=== PATIENT | female | born 1965 | race American Indian/Alaskan Native ===

== ENCOUNTER 2022-06-19 09:09 | Outpatient (CLI) | payer OTHER, SELFPAY ==
--- NOTE | 2022-06-19 08:45 | DI.RAD_ITS ---
Exam(s) XR SHOULDER LT COMPLETE 2+V EXAM: XR SHOULDER LT COMPLETE 2+V CLINICAL HISTORY: eval L AC joint pain/swelling. TECHNIQUE: 2D digital imaging was performed. Three views. COMPARISON: MR MRI - L UPPER JOINT WO CONT from 04/26/2016 FINDINGS: BONES: No acute fracture is present. No bony destructive lesion is seen. JOINTS: No dislocation present. Mild spurring AC joint and glenohumeral joint SOFT TISSUE: Calcification adjacent to greater tuberosity consistent with calcific tendinosis. IMPRESSION: Mild degenerative changes and calcific tendinosis. DATA REPOSITORY: RADIATION DOSE DELIVERED:
== END 2022-06-19 09:10 | disposition home or self-care (01) ==
LOC: DIORS 09:10
PROVIDERS: PCP Family Medicine; Referring Provider Family Medicine; Visit Provider Student in an Organized Health Care Education/Training Program
DX: M75.32 Calcific tendinitis of left shoulder (principal); M19.012 Primary osteoarthritis, left shoulder
CPT/HCPCS: 73030

== ENCOUNTER → 2023-05-30 01:58 | Outpatient (CLI) | payer OTHER, SELFPAY ==
--- NOTE | 2023-05-30 07:30 | DI.MRI_ITS ---
Exam(s) MR UPPER JOINT LT WO EXAM: MR UPPER JOINT LT WO CLINICAL HISTORY: PAIN,CALCIFIC TENDINITIS LT SHOULDER, M75.32. TECHNIQUE: Multiplanar multisequence MRI was performed. COMPARISON: Plain films June 20. MRI 26 April 2016 FINDINGS: BONES: There is no fracture or contusion pattern. And small degenerative subchondral cysts in humer al head. JOINTS:The acromioclavicular joint shows mild spurring and fluid. The glenohumeral joint shows no si gnificant fluid. TENDONS: Supraspinatus: Small calcification faintly visible at greater tuberosity corresponding to plain film calcification. Tendon mildly thickened distally. Small amount of increased signal. No discrete tea r. Infraspinatus: Unremarkable. Subscapularis: Unremarkable. Teres Minor: Unremarkable. Biceps and [place]: Biceps tendon not seen, consistent with tear and retraction. MUSCLES: Unremarkable. GLENOID LABRUM: Unremarkable on this noncontrast examination. SOFT TISSUES: Unremarkable. OTHER: Subacromial and subdeltoid bursae shows not no fluid.. Small amount of fluid in subcoracoid bursa. IMPRESSION: Full-thickness tear and retraction of the biceps tendon. Supraspinatus calcific tendinosis. DATA REPOSITORY:
== END ==
PROVIDERS: PCP Family Medicine; Visit Provider Student in an Organized Health Care Education/Training Program
DX: M75.32 Calcific tendinitis of left shoulder (principal); S46.212A Strain of muscle, fascia and tendon of other parts of biceps, left arm, initial encounter; X58.XXXA Exposure to other specified factors, initial encounter
CPT/HCPCS: 73221

== ENCOUNTER 2024-05-07 11:08 | Day surgery (SDC) | payer OTHER, SELFPAY ==
[2024-05-07] VITALS (22 sets, daily range): BP systolic 103–158; BP diastolic 56–96; PULSE 66–84; RESP 15–21; TEMP 36–36.6; O2SAT 94–99; BMI 26.4
--- NOTE | 2024-05-07 10:33 | W.ANESPRE ---
General Info Date of Service Date Performed: 05/07/24 Height: 5 ft 2.5 in Weight: 66.678 kg Body Mass Index (BMI): 26.4 Surgical Procedure: Operation Date: 05/07/24 14:10 Proposed Procedure Side Surgeon p Shoulder Arthroscopy & Debridement Left Omega Sepulveda MD Meds Allergies and Home Medications Allergies Allergy/AdvReac Type Severity Reaction Status Date / Time aspirin Allergy Severe Anaphylaxsi Verified 05/07/24 11:19 s erythromycin base Allergy Severe Pulmonary Verified 05/07/24 11:19 edema NSAIDS (Non-Steroidal Allergy Severe pulmonary Verified 05/07/24 11:19 Anti-Inflamma edema venom-honey bee Allergy Severe Anaphylaxsi Verified 05/07/24 11:19 s CITRIC ACID Allergy Anaphylaxis Uncoded 05/07/24 11:19 Home Medication ?Medication ?Instructions ?Recorded albuterol sulfate 90 mcg/actuation 2 puff inhalation PRN PRN 12/14/12 aerosol inhaler (ProAir HFA) epinephrine 0.3 mg/0.3 mL 0.3 mg IJ PRN PRN 02/11/17 injection, auto-injector (EpiPen 2-David) oxycodone 5 mg tablet 5 mg PO Q4H PRN PRN Pain #20 tabs 10/30/17 lisinopril 10 mg tablet 20 mg PO .QHS 09/05/21 atorvastatin 20 mg tablet 10 mg PO DAILY 03/22/23 alprazolam 0.5 mg tablet 0.5 mg PO ONCE PRN claustrophobia 05/08/23 #2 tabs semaglutide 0.25 mg or 0.5 mg (2 0.25 mg subcut QWEEK 06/04/23 mg/3 mL) subcutaneous pen injector (Ozempic) Current Visit Medications: Current Medications Generic Name Dose Route Start Last Admin Trade Name Freq PRN Reason Stop Dose Admin Acetaminophen 1,000 mg 05/07/24 06:00 Acetaminophen 500 Mg Tab PO 05/07/24 23:59 PREOP BONI Ringer's Solution 1,000 mls @ 80 mls/hr 05/07/24 06:00 IV 05/07/24 23:59 INFUSION BONI Cefazolin Sodium/Dextrose 2 gm in 50 mls @ 100 mls/hr 05/07/24 06:00 Ancef Duplex IVPB 05/07/24 23:59 PREOP BONI Tranexamic Acid/Sodium Chloride 1,000 mg in 100 mls @ 600 mls/hr 05/07/24 06:00 IVPB 05/07/24 23:59 PREOP BONI IV Miscellaneous Supplies 1 each 05/07/24 06:00 Iv Access IV 05/07/24 23:59 DIRECTED BONI Sodium Chloride 0 ml 05/07/24 06:00 Normal Saline Flush 10 Ml Syr IV 05/07/24 23:59 PRN PRN Sodium Chloride 0 ml 05/07/24 06:00 Normal Saline 10 Ml Vial IJ 05/07/24 23:59 DIRECTED PRN Sterile Water 0 ml 05/07/24 06:00 Water,Injection,Sterile 10 Ml Vial IJ 05/07/24 23:59 DIRECTED PRN PFSH Active Problems Active Problems: Problem Status Onset Code Status post arthroscopy of left shoulder Acute Z98.890 Calcific tendinitis of left shoulder Acute M75.32 Arthralgia of left acromioclavicular joint Acute M25.512 Contracture of iliopsoas muscle Acute M62.459 Stiffness of left shoulder joint Acute M25.612 Incomplete tear of left rotator cuff Acute 05/08/16 M75.112 Medical History Medical History Chondromalacia, 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) Chronic left shoulder pain (04/25/17) Derangement of medial meniscus of left knee (05/08/16) Left hip pain (11/01/16) Subacromial impingement of left shoulder (06/11/17) Superior glenoid labrum lesion of left shoulder, subsequent encounter (11/12/17) Tendinitis of left rotator cuff (06/11/17) Surgical History Surgical History Hx of hysterectomy Ligation of fallopian tube Cholecystectomy Tobacco Smoking/Tobacco Use Status: Former Tobacco Use Alcohol Alcohol Intake: current Alcohol intake frequency: a few times a month Substance Use Substance use: Never Substance use type: does not use Vital Signs and Lab Results Vital Signs Most Recent Vital Signs in EMR: Temp Pulse Resp BP Pulse Ox 36 C L 76 16 128/74 97 05/07/24 11:13 05/07/24 11:13 05/07/24 11:13 05/07/24 11:13 05/07/24 11:13 Lab Results Blood Type / Crossmatch: No Data to Display Complete Blood Count: No Data to Display Complete Metabolic Panel: No Data to Display Liver Function Panel: No Data to Display Coagulation Panel: No Data to Display Cardiac Panel: No Data to Display Arterial Blood Gas: No Data to Display Venous Blood Gas: No Data to Display Pancreas Panel: No Data to Display Thyroid Panel: No Data to Display Infectious Disease: No Data to Display Blood Cultures: No Data to Display Toxicology Panel: No Data to Display Anesthesia Assessment and Plan Anesthesia History Personal History: No History of Anesthesia Complications Family History: No Family History of Anesthesia Complications Exercise Tolerance Exercise Tolerance: Metabolic Equivalents>4 Pertinent Negatives Pertinent Negatives: No Symptoms of GERD, No Major Cardiovascular Symptoms or Complaints, No History of CVA/TIA and Other (Daily use of albuterol inhaler, more frequently dependent on irritants ) Cardiac & Pulmonary Exam Cardiac Exam: Heart Murmur Present Pulmonary Exam: Clear Bilateral Breath Sounds Implantable Cardiac Device Does patient have a Pacemaker or an ICD?: No Airway Exam Known Difficult Airway: No Mallampati Class: 2 Mouth Opening: Normal (> 3cm) Thyromental Distance: Greater than 3 cm Neck Range of Motion: Full ROM Neck Circumference: Normal Teeth Condition: Normal Dentition ASA Classification ASA Score: ASA 2 Emergency Case?: No NPO Status NPO Status: NPO Clears >2 hours, Solids >8 hours Anesthesia Plan Resuscitation Status: Full Code Anesthesia Technique: General Anesthesia Airway Planned: Endotracheal Tube Monitors Used: Standard Monitors Preoperative Comments:: 58 yo female for shoulder scope. Sig PMHx: elevated A1c (semaglutide), Daily use of rescue inhaler Previous Anes: - shoulder scope, mac 3 grade 2. scop patch. midaz for block. 20 mL 0.5% for ISB. - knee scope, LMA 4, no issues. Plan GETA, Brachial plexus block, TIVA, sedline, adequate IV access, phenylephrine infusion
[2024-05-07] MEDS: Acetaminophen 500 MG TAB 1000 MG PO (11:30)
[2024-05-07] MEDS: Lactated Ringers 1,000 ML 80 ML IV (11:42)
--- NOTE | 2024-05-07 14:18 | W.PM.DSUDISC ---
Date of service: 05/07/24 Time of Service: 14:18 Discharge Plan Disposition Patient Disposition: Home Condition: Good Discharge Details Reason For Visit: L shoulder arthroscopy Attending Provider: Omega Sepulveda Primary Care Provider: Lynda Salamanca Home Meds and New Rx's Prescriptions: New acetaminophen 500 mg tablet 1,000 mg PO TID Qty: 90 3RF oxycodone 5 mg tablet 5 mg PO Q4H MDD 6 tabs PRN (Reason: pain) Qty: 20 0RF Continued atorvastatin 20 mg tablet 10 mg PO DAILY Ozempic 0.25 mg or 0.5 mg (2 mg/3 mL) pen injector 0.25 mg subcut QWEEK Rx Instructions: for 4 weeks alprazolam 0.5 mg tablet 0.5 mg PO ONCE PRN (Reason: claustrophobia) Qty: 2 0RF Rx Instructions: Take within 3o minutes of MRI. Repeat x 1 if necessary. albuterol sulfate [ProAir HFA] 1 PUFF HFA aerosol inhaler 2 puff Inhalation PRN PRN lisinopril 10 mg tablet 20 mg PO .QHS Patient Comments: 08/01/17-PT STATES CURRENT DOSE IS 15MG DAILY--RODRIGO MATHIAS epinephrine [EpiPen 2-David] 0.3 MG/0.3 ML auto-injector 0.3 mg IJ PRN PRN Discontinued oxycodone 5 MG tablet 5 mg PO Q4H PRN PRN (Reason: Pain) Qty: 20 0RF Discharge Instructions Stand Alone Forms: Derick Shoulder Arthro Referrals: Omega Sepulveda MD [ [facility] ST[facility]FF PHYSICIAN] - Equipment/Supplies: Sling Activity:: Elevate Remove Dressings/Wound Care:: 72 hours Shower/Bathe:: 72 hours Diet:: As Tolerated Discharge Orders Discharge Orders: Discharge Order (Routine); Ordered 05/07/24 Ordered By: Addison Bautista DS: Diagnosis Discharge Diagnosis (1) Calcific tendinitis of left shoulder: Status: Acute
--- NOTE | 2024-05-07 14:29 | W.ANESNERVE ---
Nerve Block Single Injection Procedure Date and Time Date Performed: 05/07/24 Procedure Start: 13:47 Location Where Procedure Performed Procedure Location: Day Surgery Unit Reason Performed: Postoperative Analgesia Requesting Provider: Omega Sepulveda Timeout Performed Timeout Performed: No Monitoring Used ECG, Blood Pressure, SpO2 and See EMR for corresponding vital signs Sterility Sterility: Hand Hygiene, Surgical Cap, Surgical Mask, Sterile Gloves and Chlorhexidine Sedation Given During Procedure Sedation Given (Indicate Dose Given): Versed IV Dose:: 2mg Patient Mental Status Patient Mental Status: Sedate with meaningful communication Nerve Block 1st Nerve Block: Laterality: Left Block Type: Interscalene Ultrasound Image Saved?: Yes Needle / Catheter Used: 100mm SonoPlex II Local Anesthetic Bolus (Indicate Dose Given): Lidocaine used for local infiltration of skin, Injected in 3-5ml increments after negative blood aspiration, Bupivacaine 0.5% Dose:: 10ml and Exparel Dose:: 10ml Additives (Indicate Dose Given): None Ultrasound: Sterile probe cover and gel used Nerve Stimulator: Supplement to Ultrasound use and No twitch or parasthesia noted < 0.5 mA Paresthesia: None Procedure Tolerated: No Complications and Patient tolerated well Procedure Outcome: Successful Performed By: Misael Monroy Supervised By: Stuart Bell
[2024-05-07] MEDS: ceFAZolin 2 GM/50 ML BAG IVPB (14:48)
[2024-05-07] MEDS: TRANEXAMIC ACID/SOD. CHL. 1,000 MG/100 ML BAG 600 MG IVPB (14:53)
[2024-05-07] MEDS: EPINEPHrine 10 MG/10 ML ML (15:23)
--- NOTE | 2024-05-07 16:21 | W.ANESPOSTOP ---
Postoperative Evaluation Date, Time and Location Date Performed: 05/07/24 Time Performed: 16:22 Patient Location: PACU Vital Signs Most Recent Imported Vital Signs: Most Recent Vital Signs Temp Pulse Resp BP Pulse Ox 36.5 C 67 17 128/83 95 05/07/24 16:16 05/07/24 16:16 05/07/24 16:16 05/07/24 16:16 05/07/24 16:16 Pain Score Most Recent Pain Score: Most Recent Pain Score Pain Level 0 05/07/24 16:15 Assessment Mental Status: Awake (Alert & Oriented to Patient Baseline) Airway and Respiratory Function: Patent airway with normal (patient baseline) respiratory exam Cardiovascular Function: Hemodynamically Stable Hydration Status: Adequately Hydrated Nausea & Vomiting: No Nausea or Vomiting Pain: Pain is tolerable per patient Peripheral Nerve Block: Regional nerve block not resolved at time of post operative discharge Teaching Patient Teaching: Discussed Safe Use of Pain Medication Given Recent Anesthesia
--- NOTE | 2024-05-07 21:10 | W.PM.OP ---
Date of service: 05/07/24 Time of Service: 14:30 Operative Note Operative Note DATE OF PROCEDURE: 05/07/24 PRE-OP DIAGNOSIS: Left Rotator Cuff Calcific Tendinitis Left Partial Rotator Cuff Tear POST-OP DIAGNOSIS: same PROCEDURE: - Extensive debridement of anterior and superior glenohumeral joint and rotator cuff - Debridement of calcific disease of anterior rotator cuff - Subacromial Debridement with Acromioplasty SURGEON: Omega Sepulveda ANESTHESIA TYPE: General LMA/ETT and Primary Nerve Block Refer to Anesthesia Record ESTIMATED BLOOD LOSS: 0 PATHOLOGY: none sent TOURNIQUET TIME: 0 COMPLICATIONS: None Patient was transported to: PACU Patient's condition: stable Indications: I have seen Radha in clinic for a painful shoulder. Pathology was confirmed based on MRI and exam findings. Nonoperative measures were exhausted but disability and pain persisted. I discussed shoulder arthroscopy and procedures. I reviewed the risks of the procedures to include, but not limited to, bleeding, infection, pain, stiffness, damage to nerves or vessels, recurrence, hardware failure, blood clot. Despite these risks, the patient elected to proceed. Findings: A diagnostic arthroscopy was performed with the following findings: Articular Side - Glenohumeral Joint: Mild-moderate arhtritic change, thinning of the superior humeral head - Labrum: Some fraying of the anterior and superior labrum and elevation off of the glenoid - Cuff: Some fraying and a small split of the upper subscapularis without elevation of footprint, mild fraying intra-articular supraspinatus - Biceps: absent Subacromial Side - Bursal: mild inflammation but thickened bursa - Rotator Cuff: calcific deposits in anterior rotator cuff with otherwise mild fraying - Small anterolateral acromial spur Procedure Description: Radha was greeted in the preoperative holding area where the correct side was identified and marked. The consent was reviewed with the patient and signed. The history and physical was updated. All questions were answered. Radha was then administered an intrascalene nerve block. She was then taken to the operating room. The patient was placed into the supine position on the operating room table. A general anesthetic was administered. Radha was then positioned in the beach chair position. All bony prominences were well padded. The head was placed in a foam quality control inspector heading in a neutral position. Prophylactic antibiotics in the form of Cefazolin were administered. The left arm/shoulder was then prepped with Chloraprep and draped in a standard fashion with stockinette and shoulder drape. A timeout to confirm correct identity, side and site, procedure, allergies, anesthesia, and medical concerns was performed. The arm was placed into a pneumatic garcia, [id number]. The shoulder arthroscopy was then performed. The glenohumeral joint was injected with 20 cc of normal saline with good flow back. A standard posterior portal was made and the joint was entered atraumatically with a blunt arthroscope. Once inside we had good visualization of the structures of the glenohumeral joint. An anterior portal was established with spinal needle localization. A 6.5 mm cannula was inserted. A probe was then used to perform a diagnostic arthroscopy. There is noted to be some thinning of the cartilage of the superior humeral head. The labrum was intact anteriorly and posteriorly although there some fraying changes anterior and superiorly. There was some mild elevation of the labrum off of the glenoid. These areas of fraying and elevation were then debrided. There were no loose bodies in the inferior pouch. The superior rotator cuff was attached to the tuberosity. The biceps tendon was absent. The subscapularis was intact at the tuberosity although there were some areas of fraying and a short longitudinal split in the upper subscpaularis. This was debrided. There was minimal elevation of the fibers off of the tuberosity so no repair was performed. The arthroscope was then inserted into the subacromial space. The 6.5 mm cannula was placed lateral to the CA ligament. A complete bursectomy is performed anteriorly, posteriorly, and laterally with electrocautery and shaver. This had excellent exposure of the rotator cuff. The bursa was dense and mildly inflammed. The bursal side rotator cuff was without any significant tearing that was appreciated except for some fraying. There were calcific changes identified, as expected based on the MRI. This was entered with a probe and calcific material was expressed. Once it seemed to be fully expresed, I then used a shaver to debride this. There was a small anterolateral spur. Using a spinal needle a lateral portal was established. This became the viewing portal. A 5.0 mm gee was then inserted from the posterior portal. The anterolateral corner of the acromion was then resected in plane with the posterior slope of the acromion. The scope equipment was removed from the shoulder. Excess fluid was evacuated. The portal sites were closed with 3-0 Monocryl. The wounds were dressed with Steri-Strips, 4 x 4's, ABDs, Medipore tape. A sling was applied. The patient tolerated the procedure well and was returned to the PACU in a stable condition suffering no known complication.
== END 2024-05-07 17:33 | disposition home or self-care (01) ==
PROVIDERS: PCP Family Medicine; Visit Provider Student in an Organized Health Care Education/Training Program
PROC: (CPT 29805; principal; 2024-05-07 14:00)
DX: M75.112 Incomplete rotator cuff tear or rupture of left shoulder, not specified as traumatic (principal); M75.32 Calcific tendinitis of left shoulder; M19.012 Primary osteoarthritis, left shoulder; M75.52 Bursitis of left shoulder
CPT/HCPCS: 29823; 29826; 76942; C9290; J0665; J0690; J1100; J1805; J2250; J2371; J2405; J2704

== ENCOUNTER 2025-02-18 01:39 | Outpatient (CLI) | payer OTHER, SELFPAY ==
--- NOTE | 2025-02-18 08:00 | DI.MRI_ITS ---
Exam(s) MR UPPER JOINT LT WO EXAM: MR UPPER JOINT LT WO CLINICAL HISTORY: PAIN,arthralgia lt ac joint, calcific tendinitis lt shoulder, m75.32,. TECHNIQUE: Multiplanar multisequence MRI was performed. COMPARISON: MR MRI - L UPPER JOINT WO CONT from 04/26/2016 CR XR SHOULDER LT COMPLETE 2+V from 06/19/2022 MR MR UPPER JOINT LT WO from 05/30/2023 FINDINGS: BONES: There is no fracture or contusion pattern. Subchondral cysts are seen in the humeral head. JOINTS: There are degenerative changes seen at the acromioclavicular joint. No significant joint effusion is seen. The glenohumeral joint is normal. TENDONS: Supraspinatus: There is hyperintense signal seen within the supraspinatus tendon both on its bursal surface and within the substance consistent with partial tear. There is no evidence of a full-thickness supraspinatus tendon tear. Infraspinatus: Unremarkable. Subscapularis: Unremarkable. Teres Minor: Unremarkable. Biceps and [place]: The biceps tendon is not visualized. MUSCLES: Unremarkable. No significant muscular fatty atrophy is present. GLENOID LABRUM: The superior labrum appears blunted with intermediate signal which may represent degeneration. This is unchanged compared to the prior examination. SOFT TISSUES: Unremarkable. There is artifact seen in the soft tissues of the shoulder anteriorly likely reflecting prior surgery. LIGAMENTS: Unremarkable. OTHER: There is a small amount of fluid in the subacromial subdeltoid bursa. IMPRESSION: 1. Hyperintense signal seen within the supraspinatus tendon suspicious for partial tear. 2. Stable findings concerning the biceps tendon and glenoid labrum. 3. Small amount of fluid in the subacromial subdeltoid bursa which may represent bursitis. 4. Postsurgical artifact seen in the soft tissues of the shoulder anteriorly. 5. Degenerative changes seen at the acromioclavicular joint. DATA REPOSITORY:
== END 2025-02-18 01:59 ==
LOC: DI 01:41
PROVIDERS: PCP Family Medicine; Visit Provider Student in an Organized Health Care Education/Training Program
DX: M25.512 Pain in left shoulder (principal); M75.32 Calcific tendinitis of left shoulder
CPT/HCPCS: 73221

== ENCOUNTER 2025-06-02 15:26 | Outpatient (CLI) | payer OTHER, SELFPAY ==
--- NOTE | 2025-06-02 14:15 | DI.RAD_ITS ---
Exam(s) XR SHOULDER LT COMPLETE 2+V EXAM: XR SHOULDER LT COMPLETE 2+V CLINICAL HISTORY: LEFT SHOULDER PAIN. TECHNIQUE: 2D digital imaging was performed. COMPARISON: CR XR SHOULDER LT COMPLETE 2+V from 06/19/2022 FINDINGS: 3 views No evidence of acute fracture or dislocation. There are some degenerative changes again noted in the glenohumeral joint. Small osteophyte is again noted on the inferior articular surface of the humeral head. The previously present calcific density adjacent to the greater tuberosity is not seen on today's images. The subacromial space now appears unremarkable. Again noted are mild-moderate degenerative changes in the AC joint. IMPRESSION: The previously present soft tissue calcification just above the greater tuberosity is not evident on the present study Mild-moderate degenerative changes are again noted in the glenohumeral joint. DATA REPOSITORY: RADIATION DOSE DELIVERED:
== END 2025-06-02 15:27 | disposition home or self-care (01) ==
LOC: DIORS 15:26
PROVIDERS: PCP Family Medicine; Visit Provider Student in an Organized Health Care Education/Training Program
DX: M75.112 Incomplete rotator cuff tear or rupture of left shoulder, not specified as traumatic (principal); M19.012 Primary osteoarthritis, left shoulder
CPT/HCPCS: 73030

== ENCOUNTER → 2025-06-11 02:39 | Outpatient (CLI) | payer OTHER, SELFPAY ==
--- NOTE | 2025-06-11 09:00 | DI.RAD_ITS ---
Exam(s) RF JOINT INJ. FLUORO GUID RAD EXAM: RF JOINT INJ. FLUORO GUID RAD CLINICAL HISTORY: Z98.890,M19.012 S/P arthroscopy of left shoulder, ? INFECTION. TECHNIQUE: 2D and realtime digital imaging was performed. CONTRAST MATERIAL: Intra-articular Omnipaque 300-1.5 cc COMPARISON: Prior x-rays reviewed. FINDINGS: This fluoroscopic guided left shoulder diagnostic aspiration was performed at the request of the referring orthopedic surgeon. The patient was consented prior to this procedure Patient was placed in the supine position on the fluoroscopy table. Using sterile technique and adequate skin-subcutaneous anesthesia, fluoroscopic guidance was used to advance a 22 gauge spinal needle into the glenohumeral joint via an anterior approach. Intra-articular position was confirmed with injection of 1.5 cc of Omnipaque 300. This was a dry tap. Therefore injected 8 cc of sterile preservative-free saline into the joint and after 2 minutes fluid was aspirated via the indwelling needle. A total of 4 cc was aspirated and injected into to test tubes for laboratory testing. Indwelling needle was then removed and a Band-Aid applied. Tolerated this procedure well and there were no intraprocedural complications. IMPRESSION: Fluoroscopic guided left shoulder glenohumeral joint aspiration. This was a dry tap so we proceeded with injecting 8 cc of preservative-free sterile saline and thereafter aspirating. The obtained fluid was clear/nonpurulent appearing RADIATION DOSE DELIVERED: Ka,r=2.12mGy
--- NOTE | 2025-06-11 09:03 | DI.CT_ITS ---
Exam(s) CT UPPER EXTREMITY LT WO EXAM: CT UPPER EXTREMITY LT WO CLINICAL HISTORY: Z98.890,M19.012,M75.112,M75.32 S/Parthroscopy LT shoulder;SURGICAL PLANNING TECHNIQUE: Imaging Protocol: Axial computed tomography images with coronal and sagittal reformatted images were created and reviewed. CONTRAST MATERIAL: Intravenous: Omnipaque 350 Contrast volume:structured data in ml Contrast route:IV - Noncontrast COMPARISON: CR XR SHOULDER LT COMPLETE 2+V from 06/02/2025 FINDINGS: Bones: There is no evidence of fracture or dislocation. Bony alignment is satisfactory. No cellulitic or osteomyelitic changes are identified. No lytic or sclerotic lesions are identified. There are mild degenerative cystic changes at the greater tuberosity. Joints: There is mild spurring at the AC joint. There is mild glenohumeral joint space narrowing. There is mild spurring at the glenoid and inferior humeral head.. Soft Tissues: Mild calcification in the distal supraspinatus tendon. No significant muscular atrophy. IMPRESSION: Mild degenerative changes of the glenohumeral joint and AC joint. DATA REPOSITORY: All CT scans at this facility are submitted to the National Radiology Data Registry (NRDR) Dose Index Registry (DIR) with the [employer] (A[employer]). RADIATION OPTIMIZATION: All CT scans at this facility use at least one of these dose optimization techniques: automated exposure control; mA and/or kV adjustment per patient size (includes targeted exams where dose is matched to clinical indication); or iterative reconstruction.
[2025-06-11 15:51] LABS: ESR 7 mm/hr (0-30)
[2025-06-11 15:54] LABS: Abs Immature Grans 0.02 10^3/uL (0.0-0.06); HCT 36.8 % (36.0-46.0); HGB 12.5 g/dL (11.2-15.7); Immature Grans % 0.3 %; MCH 28.9 pg (27.0-33.0); MCHC 34.0 % (32.0-36.0); MCV 85 fL (80-95); MPV 8.1 fL (8.0-11.0); Platelet Count 272 10^3/uL (130-400); RBC 4.32 10^6/uL (3.93-5.22); RDW 12.3 % (11.7-14.6); RDW-SD 38.1 fL; WBC 7.46 10^3/uL (4.4-10.8)
[2025-06-11] MEDS: Omnipaque 300 MG/ML 10 ML BTL IJ (15:56)
[2025-06-11] MEDS: Normal Saline - Diluent 50 ML VIAL IJ (15:56)
[2025-06-11] MEDS: Lidocaine 1% Pres-Free 30 ML VIAL IJ (15:57)
[2025-06-11 16:44] LABS: Polynuclear Cells 30 %
[2025-06-11 17:03] LABS: C-Reactive Protein < 0.50 mg/dL (<=0.50)
== END ==
LOC: DI 02:40
PROVIDERS: PCP Family Medicine; Visit Provider Student in an Organized Health Care Education/Training Program
DX: Z98.890 Other specified postprocedural states (principal); M19.012 Primary osteoarthritis, left shoulder; M75.112 Incomplete rotator cuff tear or rupture of left shoulder, not specified as traumatic; M75.32 Calcific tendinitis of left shoulder
CPT/HCPCS: 20610; 77002; 85652; 73200; 85025; 86140; 87070; 87205; 89051; 89060